=== PATIENT | male | born 1950 | race Two or more races ===

== ENCOUNTER 2017-08-01 07:21 | Emergency (ER) | payer SELFPAY ==
[~2017-08-01] VITALS: Ht 177.8 cm; Wt 77.0 kg
[2017-08-01] MEDS ORDERED: AMOX125S8 PO (08:04)
[2017-08-01] MEDS ORDERED: IBUP-1649 PO (08:04)
[2017-08-01] MEDS ORDERED: TYLENOL #3 (08:04)
[2017-08-01] MEDS ORDERED: TRANEXAMIC ACID 1,000 MG/10 ML IV ONE ×2 (08:30→09:15)
[2017-08-01 08:44] LABS: HEMOGLOBIN 13.2 g/dL (14.0-18.0)
[2017-08-01] MEDS ORDERED: TRANEXAMIC ACID 1,000 MG/10 ML IV SCH (08:45)
[2017-08-01 11:09] VITALS: BP 179/98
== END 2017-08-01 11:12 | disposition home or self-care (01) ==
LOC: ER 08:26
DX: K06.8 Other specified disorders of gingiva and edentulous alveolar ridge (principal); J45.909 Unspecified asthma, uncomplicated
CPT/HCPCS: 36415; 85014; 85018; 99284